=== PATIENT | male | born 1980 | race African-American/Black ===

== ENCOUNTER 2017-03-15 15:50 | Emergency (ER) | payer SELFPAY | END 2017-03-15 16:08 | disposition home or self-care (01) | LOC: ER 15:50 | DX: L03.012 Cellulitis of left finger (principal) | CPT/HCPCS: 99283 ==

== ENCOUNTER 2017-03-18 22:34 | Emergency (ER) | payer SELFPAY | END 2017-03-18 22:38 | disposition home or self-care (01) | LOC: ER 22:34 | PROC: 0H9GXZZ Drainage of Left Hand Skin, External Approach (ICD-10-PCS; principal; 2017-03-18) | DX: L03.012 Cellulitis of left finger (principal) | CPT/HCPCS: 73140-LT; 99283; A9270-GY ==